=== PATIENT | male | born 2000 | race Caucasian/White ===

== ENCOUNTER 2024-07-29 10:22 | Emergency (ER) | payer MEDICAID, OTHER ==
[2024-07-29 10:35] VITALS: TEMP 97.8
[2024-07-29] MEDS ORDERED: ZOFRAN ODT 4 MG ONE (10:38)
[2024-07-29] MEDS ORDERED: XYLOCAINE VISCOUS 2% 15 ML CUP ONE (10:38)
[2024-07-29] MEDS ORDERED: MAALOX ES 30 ML UNIT DOSE ONE (10:38)
--- NOTE | 2024-07-29 10:39 | ERPHSYRPT ---
- History of Present Illness Time Seen by Provider: 07/29/24 10:34 Source: patient Exam Limitations: no limitations Physician History: 23-year-old male presents to our ED with nausea and vomiting. Patient states symptoms started approximately 12 hours ago. He reports his immediate family members his children had the same symptomology. They are now over it. Patient states that he is improving. Patient now able to tolerate p.o. However he has a burning sensation in his epigastrium. Patient otherwise feels well. No active pain at this time. No chest pain or shortness of breath. No diarrhea no rash no fever. Patient has no significant past medical history. Patient voices no other complaints or concerns at this time. Portions of this note were created with voice recognition technology. There may be grammatical, spelling, punctuation or sound alike errors Timing/Duration: today Severity: moderate Modifying Factors: Improves With: nothing Associated Symptoms: denies symptoms Allergies/Adverse Reactions: No Known Drug Allergies Allergy (Verified 07/29/24 10:35) - Review of Systems Constitutional: No Symptoms, No Fever, No Chills Eyes: No Symptoms Ears, Nose, & Throat: No Symptoms Respiratory: No Symptoms, No Cough, No Dyspnea Cardiac: No Symptoms, No Chest Pain, No Edema, No Syncope Abdominal/Gastrointestinal: No Symptoms, No Abdominal Pain, No Nausea, No Vomiting, No Diarrhea Genitourinary Symptoms: No Symptoms, No Dysuria Musculoskeletal: No Symptoms, No Back Pain, No Neck Pain Skin: No Symptoms, No Rash Neurological: No Symptoms, No Dizziness, No Focal Weakness, No Sensory Changes Psychological: No Symptoms Endocrine: No Symptoms Hematologic/Lymphatic: No Symptoms Immunological/Allergic: No Symptoms All Other Systems: Reviewed and Negative - Nursing Vital Signs Nursing Vital Signs: Initial Vital Signs Temperature 97.8 F 07/29/24 10:30 Pulse Rate 91 H 07/29/24 10:30 Respiratory Rate 20 07/29/24 10:30 Blood Pressure 146/86 07/29/24 10:30 O2 Sat by Pulse Oximetry 97 07/29/24 10:30 Pain Scale Pain Intensity 0 - Physical Exam General Appearance: no apparent distress, alert Eye Exam: PERRL/EOMI, eyes nml inspection Ears, Nose, Throat Exam: normal ENT inspection, TMs normal, pharynx normal, moist mucous membranes Neck Exam: normal inspection, non-tender, supple, full range of motion Respiratory Exam: normal breath sounds, lungs clear, No respiratory distress Cardiovascular Exam: regular rate/rhythm, normal heart sounds, normal peripheral pulses Gastrointestinal/Abdomen Exam: soft, normal bowel sounds, No tenderness, No mass Back Exam: normal inspection, normal range of motion, No CVA tenderness, No vertebral tenderness Extremity Exam: normal inspection, normal range of motion, pelvis stable Neurologic Exam: alert, oriented x 3, cooperative, normal mood/affect, nml cerebellar function, nml station & gait, sensation nml, No motor deficits Skin Exam: normal color, warm, dry, No rash Lymphatic Exam: No adenopathy SpO2 Interpretation: normal O2 Delivery: Room Air - Course Nursing assessment & vital signs reviewed: Yes Ordered Tests: Medication Summary Discontinued Medications Generic Name Dose Route Start Last Admin Trade Name Freq PRN Reason Stop Dose Admin Al Hydrox/Mg Hydrox/Simethicone Confirm 07/29/24 10:38 Mag Hydrox/Al Hydrox/Simeth 30 Ml Udcup Administered 07/29/24 10:39 Dose 30 ml .ROUTE .STK-MED ONE Lidocaine HCl Confirm 07/29/24 10:38 Lidocaine Hcl 2% Viscous 15 Ml Udcup Administered 07/29/24 10:39 Dose 15 ml .ROUTE .STK-MED ONE Magnesium Hydroxide 45 ml 07/29/24 10:33 07/29/24 10:40 Mag Hydrx/Alum Hyd/Simeth/Lido 45 Ml Bottle PO 07/29/24 10:34 45 ml STAT ONE Administration Ondansetron HCl 4 mg 07/29/24 10:33 07/29/24 10:40 Zofran 4 Mg/Udtablet Orally Disintegrating PO 07/29/24 10:34 4 mg STAT ONE Administration Ondansetron HCl Confirm 07/29/24 10:38 Zofran 4 Mg/Udtablet Orally Disintegrating Administered 07/29/24 10:39 Dose 4 mg .ROUTE .STK-MED ONE - Progress Progress: improved Progress Note: 23-year-old male presents to our ED for evaluation of nausea and vomiting. Patient complained of epigastric burning sensation when he vomited. Patient received Zofran and a GI cocktail. Symptoms resolved. Patient tolerating p.o. No vomiting no nausea. She is asymptomatic vital stable. Patient states he is ready for discharge. A prescription for Zofran and pantoprazole forwarded to patient's pharmacy. Patient voices no other complaints or concerns at this time. Portions of this note were created with voice recognition technology. There may be grammatical, spelling, punctuation or sound alike errors Complexity of problem addressed is moderate acute complicated. No critical care time. Complex of data reviewed and analyzed is none. No specialized testing ordered or indicated. Vitals within normal limits. Risk of complication and or risk of morbidity/mortality of patient management is moderate. Prescription for Zofran and pantoprazole forwarded to patient's pharmacy. Vital stable. Time spent to discharge patient is approximately 10 minutes. Plan of care established for shared decision making. No social determinants of health present to impede follow-up. Portions of this note were created with voice recognition technology. There may be grammatical, spelling, punctuation or sound alike errors 07/29/24 11:30 07/29/24 11:41 Counseled pt/family regarding: diagnosis, need for follow-up - Departure Departure Disposition: Home Clinical Impression: Nausea and vomiting Condition: Stable Critical Care Time: No Referrals: DOCTOR,NO FAMILY [Primary Care Provider] - Follow up/PCP as directed MARY ELLEN DAVIDSON MD [ACTIVE STAFF] - Follow up/PCP as directed Additional Instructions: Discharge/Care Plan DANETTE LINN was seen on 07/29/24 in the Emergency Room. The patient was counseled regarding Diagnosis,Lab results, Imaging studies, need for follow up and when to return to the Emergency Room. Prescriptions given: Discharge Note I have spoken with the patient and/or caregivers. I have explained the patient's condition, diagnosis and treatment plan based on the information available to me at this time. I have answered the patient's and/or caregiver's questions and addressed any concerns. The patient and/or caregivers have as good understanding of the patient's diagnosis, condition and treatment plan as can be expected at this point. The vital signs have been stable. The patient's condition is stable and appropriate for discharge from the emergency department. The patient will pursue further outpatient evaluation with the primary care physician or other designated or consulting physician as outlined in the discharge instructions. The patient and/or caregivers are agreeable to this plan of care and follow-up instructions have been explained in detail. The patient and/or caregivers have received these instruction. The patient/and or caregivers are aware that any significant change in condition or worsening of symptoms should prompt an immediate return to this or the closest emergency department or call 911. Forms: Work/School Release Form Prescriptions: Ondansetron ODT 4 MG [Zofran Odt 4 mg] 4 mg PO Q6H PRN PRN #10 tablet PRN Reason: Vomiting PANTOPRAZOLE 40 mg Tablet [Protonix 40MG Tablet] 40 mg PO QAM 14 Days #14 tab
[2024-07-29] MEDS: GI COCKTAIL 45 ML (Maalox/Lidocaine) PO ONE (10:40)
[2024-07-29] MEDS: ZOFRAN ODT 4 MG PO ONE (10:40)
[2024-07-29 11:30] VITALS: BP 122/76; PULSE 70; RESP 18; O2SAT 96
== END 2024-07-29 11:42 | disposition home or self-care (01) ==
LOC: ED 10:22
DX: R11.2 Nausea with vomiting, unspecified (principal); R10.13 Epigastric pain
CPT/HCPCS: 99282; 99284; Q0162; A9270-GY